=== PATIENT | male | born 1965 | race Caucasian/White ===

== ENCOUNTER 2016-06-12 19:10 | Emergency (ER) | payer SELFPAY ==
[~2016-06-12] VITALS: Ht 182.9 cm; Wt 106.7 kg
[~2016-06-12 19:10] MED LIST: ALBU8I INH; PRED20 PO; ZITH250T PO
[2016-06-12 19:57] VITALS: BP 118/84; PULSE 87; RESP 18; TEMP 98; O2SAT 94
--- NOTE | 2016-06-12 20:11 | PD ---
HPI Chief Complaint: Oral / Dental Pain or Problem Time Seen by Provider: 20:12 Travel History International Travel<30 days: No Contact w/Intl Traveler<30days: No Traveled to known affect area: No History of Present Illness HPI 50-year-old male presents to the ED for evaluation of 3 day history of loose right lower tooth. He states that he has been waking up last few days with a "sick taste" in his mouth. Patient states that he's had trouble with the tooth off and on for a year but this worsened over the last few days. He denies fever or chills, swelling of the jaw, difficulties opening or closing his mouth , ear pain, sinus congestion, sore throat, cough. Patient is current smoker. No treatment attempted at home. Denies chronic illnesses, takes no daily medications. NKDA. PFSH Past Medical History Heart Rhythm Problems: Yes (bradycardia) Cardiovascular Problems: Yes Cerebrovascular Accident: Yes Diminished Hearing: No Immunizations Current: Yes Social History Alcohol Use: Yes (6-8 BEERS PER WEEK) Tobacco Use: Yes (1 pk daily) Substance Use: Yes (DENIES AT PRESENT) Allergies-Medications (Allergen,Severity, Reaction): Coded Allergies: No Known Allergies (Verified , 06/12/16) Reported Meds & Prescriptions Reported Meds & Active Scripts Active Magic Mouthwash Adult Liq (Multi-Ingredient Mouthwash/Gargle) 120 Ml Susp 5 Ml SWISH-SWAL ACHS PRN Each 5mL contains: Nystatin 200,000units, Diphenhydramine 4.25mg, Viscous Lidocaine 10mg, Lincoln syrup 0.8 mL Review of Systems Except as stated in HPI: all other systems reviewed are Neg Physical Exam Narrative GENERAL: Well-nourished, well-developed white male in no acute distress. SKIN: Warm and dry. HEAD: Normocephalic. Atraumatic. EYES: No scleral icterus. No injection or drainage. PERRLA. EOMI. ENT: Pearly zhou tympanic membranes bilaterally. Nasal mucosa is moist. Oropharynx without erythema, edema or exudate. DENTAL: No malocclusion. Tooth #28 has a large dental caries and is very loose. No erythema or edema of the surrounding gingiva. No evidence of dental abscess. Teeth 29 through 32 are missing. Tooth 20-17 are missing. NECK: Supple, trachea midline. No JVD or lymphadenopathy. CARDIOVASCULAR: Regular rate and rhythm without murmurs, gallops, or rubs. No carotid bruits. 2+ DP and radial pulses bilaterally. RESPIRATORY: Breath sounds clear and equal bilaterally. No accessory muscle use. GASTROINTESTINAL: Abdomen soft, non-tender, nondistended. + Bowel sounds MUSCULOSKELETAL: No cyanosis, or edema. Full, active range of motion. Strength 5/5. Neurovascularly intact. BACK: Nontender without obvious deformity. No CVA tenderness. Data Data Last Documented VS Vital Signs Date Time Temp Pulse Resp B/P Pulse Ox O2 Delivery O2 Flow Rate FiO2 06/12/16 19:57 98.0 87 18 118/84 94 MDM Medical Decision Making Medical Screen Exam Complete: Yes Emergency Medical Condition: Yes Differential Diagnosis Dental caries versus dental abscess versus periodontal disease versus other Narrative Course 50-year-old male presents to the ED for evaluation of 3 day history of loose right lower tooth. He states that he has been waking up last few days with a "sick taste" in his mouth. Patient states that he's had trouble with the tooth off and on for a year but this worsened over the last few days. He denies fever or chills, swelling of the jaw, difficulties opening or closing his mouth , ear pain, sinus congestion, sore throat, cough. Patient is a current smoker. Vitals reviewed. Physical exam reveals a well-appearing white male in no acute distress. Very poor dentition overall with very few remaining teeth. Tooth #28 has a large dental caries and is very loose. No evidence of dental abscess in the surrounding gingiva. I suspect this is likely due to periodontal disease. The patient was prescribed Magic mouthwash when necessary pain, instructed to take ibuprofen as needed for pain, follow-up with the dentist. He indicated understanding of the instructions and is amenable to plan of care. This patient is stable and discharged home. Diagnosis Primary Impression: Dental caries into pulp Additional Impression: Periodontal disease Referrals: Dentist Patient Instructions: Dental Caries (ED), General Instructions Additional Instructions: Magic mouthwash 4-5 times a day swish 30 seconds to 1 minute as needed for dental pain. Ibuprofen as directed on label, as needed for pain. Follow-up with the dentist for extraction. Return to the ED for any urgent or emergent medical condition. Med/Other Pt SpecificInfo: Prescription(s) given Scripts Diudbsps-Kkgzdkwerqerxwi-Ozjctorke Liq (Magic Mouthwash Adult Liq)120 Ml Susp5 Ml SWISH-SWAL ACHS PRN (Mouth sores) #120 ML Ref 0 Each 5mL contains: Nystatin 200,000units, Diphenhydramine 4.25mg, Viscous Lidocaine 10mg, Lincoln syrup 0.8 mL Prov:Jennifer Amaral MD 06/12/16 Disposition: 01 DISCHARGE HOME Condition: Stable Odalys Gonzáles Jun 12, 2016 20:11
[2016-06-12] MEDS ORDERED: MAGICADU2 SWISH-SWAL (20:20)
== END 2016-06-12 20:29 | disposition home or self-care (01) ==
LOC: PHEFT 19:10
DX: K02.9 Dental caries, unspecified (principal); F17.210 Nicotine dependence, cigarettes, uncomplicated
CPT/HCPCS: 99282

== ENCOUNTER 2016-08-28 05:07 | Emergency (ER) | payer SELFPAY ==
[~2016-08-28] VITALS: Ht 182.9 cm; Wt 106.5 kg
[~2016-08-28 05:07] MED LIST changes: -ALBU8I INH; +MAGICADU2 SWISH-SWAL; -PRED20 PO; -ZITH250T PO
[2016-08-28 05:14] VITALS: BP 151/98; PULSE 77; RESP 18; TEMP 97.9; O2SAT 97
[2016-08-28 05:30] LABS: AUTOMATED NEUTROPHIL # 7.4 TH/MM3 (1.8-7.7); BASOPHIL # 0.1 TH/MM3 (0-0.2); BASOPHIL % 1.1 % (0.0-2.0); EOSINOPHIL # 0.1 TH/MM3 (0-0.4); EOSINOPHIL % 0.7 % (0.0-4.0); HEMATOCRIT 44.8 % (39.0-51.0); HEMO FLAGS DIFF FINAL; LYMPH % 19.3 % (9.0-44.0); MEAN CELL VOLUME 88.1 FL (80.0-100.0); MEAN CORPUSCULAR HEMOGLOBIN 30.1 PG (27.0-34.0); MEAN CORPUSCULAR HGB CONC 34.2 % (32.0-36.0); MONO % 7.2 % (0.0-8.0); NEUT % 71.7 % (16.0-70.0); PLATELET COUNT 275 TH/MM3 (150-450); RED BLOOD COUNT 5.09 MIL/MM3 (4.50-5.90); WHITE BLOOD COUNT 10.3 TH/MM3 (4.0-11.0)
[2016-08-28 05:43] LABS: CHLORIDE 107 MEQ/L (98-107); POTASSIUM 3.5 MEQ/L (3.5-5.1); SODIUM (NA) 143 MEQ/L (136-145)
[2016-08-28 05:48] LABS: ANION GAP 8 MEQ/L (5-15); BICARBONATE 27.8 MEQ/L (21.0-32.0); BLOOD UREA NITROGEN 11 MG/DL (7-18)
[2016-08-28 05:51] LABS: ALT (GPT) 24 U/L (12-78); AST (GOT) 14 U/L (15-37); GLOMERULAR FILTRATION RATE 70 ML/MIN (>89)
[2016-08-28 05:52] LABS: TOTAL BILIRUBIN ADULT 0.6 MG/DL (0.2-1.0)
[2016-08-28 05:53] LABS: CREATINE KINASE 234 U/L (39-308)
[2016-08-28 05:54] LABS: ALKALINE PHOSPHATASE 98 U/L (45-117)
--- NOTE | 2016-08-28 05:58 | PD ---
HPI Chief Complaint: Pain: Acute or Chronic Time Seen by Provider: 05:10 Travel History International Travel<30 days: No Contact w/Intl Traveler<30days: No Traveled to known affect area: No History of Present Illness HPI The patient is a 50-year-old male who was doing crack cocaine and developed some chest pain and generalized myalgias. The patient got afraid that something may be going on with his heart and called the ambulance. He denies any dark urines. He denies any fever. He denies any cough. PFSH Past Medical History Heart Rhythm Problems: Yes (bradycardia) Cardiovascular Problems: Yes Cerebrovascular Accident: Yes Diminished Hearing: No Immunizations Current: Yes Tetanus Vaccination: > 5 Years Influenza Vaccination: No Social History Alcohol Use: Yes (6-8 BEERS PER WEEK) Tobacco Use: Yes (1 pk daily) Substance Use: Yes (DENIES AT PRESENT) Allergies-Medications (Allergen,Severity, Reaction): Coded Allergies: No Known Allergies (Verified , 08/28/16) Reported Meds & Prescriptions Reported Meds & Active Scripts Active No Active Prescriptions or Reported Medications Review of Systems Except as stated in HPI: all other systems reviewed are Neg Physical Exam Narrative GENERAL: The patient is alert, oriented 3 and slight apparent distress with his chest pain/myalgias. The blood pressure is 151/98 but the rest the vital signs are normal. SKIN: Focused skin assessment warm/dry. No needle tracks nor wrist slash rangel are present. HEAD: Atraumatic. Normocephalic. EYES: Pupils equal and round. No scleral icterus. No injection or drainage. ENT: No nasal bleeding or discharge. Mucous membranes pink and moist. NECK: Trachea midline. No JVD. CARDIOVASCULAR: Regular rate and rhythm. No murmur appreciated. RESPIRATORY: No accessory muscle use. Clear to auscultation. Breath sounds equal bilaterally. GASTROINTESTINAL: Abdomen soft, non-tender, nondistended. Hepatic and splenic margins not palpable. No guarding or rebound is present. MUSCULOSKELETAL: No obvious deformities. No clubbing. No cyanosis. No edema. NEUROLOGICAL: Awake and alert. No obvious cranial nerve deficits. Motor grossly within normal limits. Normal speech. PSYCHIATRIC: The patient is anxious; insight and judgment normal. Data Data Last Documented VS Vital Signs Date Time Temp Pulse Resp B/P Pulse Ox O2 Delivery O2 Flow Rate FiO2 6/2/17 05:18 77 18 08/28/16 05:14 97.9 151/98 97 Orders Electrocardiogram (08/28/16 05:10) Complete Blood Count With Diff (08/28/16 05:10) Comprehensive Metabolic Panel (08/28/16 05:10) Creatine Kinase (Cpk) (08/28/16 05:10) Troponin I (08/28/16 05:10) Urinalysis - C+S If Indicated (08/28/16 05:10) Drug Screen, Random Urine (08/28/16 05:10) Alcohol (Ethanol) (08/28/16 05:10) Salicylates (Aspirin) (08/28/16 05:10) Tylenol (Acetaminophen) (08/28/16 05:10) Labs Laboratory Tests Test 08/28/16 08/28/16 05:15 06:00 White Blood Count 10.3 TH/MM3 Red Blood Count 5.09 MIL/MM3 Hemoglobin 15.3 GM/DL Hematocrit 44.8 % Mean Corpuscular Volume 88.1 FL Mean Corpuscular Hemoglobin 30.1 PG Mean Corpuscular Hemoglobin 34.2 % Concent Red Cell Distribution Width 12.0 % Platelet Count 275 TH/MM3 Mean Platelet Volume 7.7 FL Neutrophils (%) (Auto) 71.7 % Lymphocytes (%) (Auto) 19.3 % Monocytes (%) (Auto) 7.2 % Eosinophils (%) (Auto) 0.7 % Basophils (%) (Auto) 1.1 % Neutrophils # (Auto) 7.4 TH/MM3 Lymphocytes # (Auto) 2.0 TH/MM3 Monocytes # (Auto) 0.7 TH/MM3 Eosinophils # (Auto) 0.1 TH/MM3 Basophils # (Auto) 0.1 TH/MM3 CBC Comment DIFF FINAL Differential Comment Sodium Level 143 MEQ/L Potassium Level 3.5 MEQ/L Chloride Level 107 MEQ/L Carbon Dioxide Level 27.8 MEQ/L Anion Gap 8 MEQ/L Blood Urea Nitrogen 11 MG/DL Creatinine 1.10 MG/DL Estimat Glomerular Filtration 70 ML/MIN Rate Random Glucose 121 MG/DL Calcium Level 8.8 MG/DL Total Bilirubin 0.6 MG/DL Aspartate Amino Transf 14 U/L (AST/SGOT) Alanine Aminotransferase 24 U/L (ALT/SGPT) Alkaline Phosphatase 98 U/L Total Creatine Kinase 234 U/L Troponin I LESS THAN 0.02 NG/ML Total Protein 6.9 GM/DL Albumin 3.7 GM/DL Ethyl Alcohol Level LESS THAN 3 MG/DL Urine Color YELLOW Urine Turbidity CLEAR Urine pH 6.0 Urine Specific [place] 1.025 Urine Protein TRACE mg/dL Urine Glucose (UA) NEG mg/dL Urine Ketones NEG mg/dL Urine Occult Blood NEG Urine Nitrite NEG Urine Bilirubin NEG Urine Leukocyte Esterase NEG Urine RBC 0-2 /hpf Urine WBC 0-2 /hpf Urine Squamous Epithelial 0-5 /hpf Cells Urine Bacteria NONE /hpf Microscopic Urinalysis Comment CULT NOT INDICATED MDM Medical Decision Making Medical Screen Exam Complete: Yes Emergency Medical Condition: Yes Medical Record Reviewed: Yes Interpretation(s) The EKG shows sinus rhythm with a rate of [address] elevation or depression. The CBC is essentially normal. The urine shows trace protein, specific gravity 1.0-5, negative for blood and leukocyte esterase and culture is not indicated. The complete metabolic profile shows a GFR of 70, glucose 121 but is otherwise normal. The total CK is normal and the troponin I is normal, less than 0.02. Differential Diagnosis Cocaine induced chest pain, acute coronary syndrome, chest wall pain, rhabdomyolysis, electrolyte disorder Narrative Course The patient appears to have cocaine-induced chest pain. There is no evidence of acute coronary syndrome or rhabdomyolysis. Plan: The patient should discontinue cocaine. He should follow-up with a primary care physician. Diagnosis Primary Impression: Chest pain of uncertain etiology Additional Impression: Cocaine abuse Additional Instructions: As we discussed, discontinue cocaine and follow-up with your primary care physician next week. There is no evidence of any heart damage on our laboratory work or EKG. Scripts No Active Prescriptions or Reported Meds Disposition: 01 DISCHARGE HOME Condition: Stable Bon Matthews MD Aug 28, 2016 05:58
[2016-08-28 06:17] LABS: BLOOD, URINE NEG (NEG); GLUCOSE,URINE NEG (NEG); KETONE, URINE NEG (NEG); NITRITE,URINE NEG (NEG)
[2016-08-28 06:18] LABS: URINE COLOR YELLOW (YELLW/STRAW)
[2016-08-28 06:26] LABS: WBC, URINE 0-2 /hpf (0-5)
[2016-08-28 06:27] LABS: COMMENT (UR) CULT NOT INDICATED; CULTURE IF INDICATED CULT NOT INDICATED; RBC, URINE 0-2 /hpf (0-3); SQUAMOUS EPITHELIAL CELL URINE 0-5 /hpf (0-5)
[2016-08-28 06:33] VITALS: BP 137/80; PULSE 74; RESP 18; O2SAT 99
[2016-08-28 06:36] LABS: AMPHETAMINE, URINE NEG (NEG)
[2016-08-28 06:37] LABS: BARBITURATES, URINE NEG (NEG)
[2016-08-28 06:42] LABS: COCAINE, URINE POS (NEG)
[2016-08-28 07:10] LABS: ACETAMINOPHEN LESS THAN 2.0 MCG/ML (10.0-30.0)
--- NOTE | 2016-08-28 14:28 | EKG ---
Date Performed: 08/28/2016 Time Performed: 05:20:32 PTAGE: 50 years EKG: Sinus rhythm . Leftward axis Nonspecific T wave changes Borderline ECG NO PREVIOUS TRACING DOCTOR: Bishop Looney Interpretating Date/Time 08/28/2016 14:27:00
== END 2016-08-28 06:59 | disposition home or self-care (01) ==
LOC: PHED 05:07
DX: R07.9 Chest pain, unspecified (principal); F14.10 Cocaine abuse, uncomplicated; R94.31 Abnormal electrocardiogram [ECG] [EKG]; M79.1 Myalgia; F17.200 Nicotine dependence, unspecified, uncomplicated; Z86.79 Personal history of other diseases of the circulatory system
CPT/HCPCS: 80053; 80307; 81001; 82550; 84484; 85025; 93005; 99284

== ENCOUNTER 2017-04-28 11:27 | Emergency (ER) | payer SELFPAY ==
[~2017-04-28] VITALS: Ht 182.9 cm; Wt 102.5 kg
[2017-04-28 11:42] VITALS: BP 132/85; PULSE 92; RESP 16; TEMP 98.8; O2SAT 96
[2017-04-28] MEDS ORDERED: CEPH-460 PO (11:58)
[2017-04-28] MEDS ORDERED: BACT800T5 PO (11:58)
--- NOTE | 2017-04-28 12:02 | PD ---
HPI Chief Complaint: Skin Problem Time Seen by Provider: 11:57 Travel History International Travel<30 days: No Contact w/Intl Traveler<30days: No Traveled to known affect area: No History of Present Illness HPI 51-year-old male presents for evaluation of an area of skin redness, pain to the left lower leg. He first noticed a small pimple type lesion just inferior to his anterior left knee. since then he has had progressive increasing redness around the area with associated pain. Pain is aching and worse with palpation of the skin. Denies any fevers, chills, drainage. Denies any skin trauma. He has no other complaints at this time. PFSH Past Medical History Heart Rhythm Problems: Yes (bradycardia) Cardiovascular Problems: Yes Cerebrovascular Accident: Yes Diminished Hearing: No Immunizations Current: Yes Social History Alcohol Use: Yes (6-8 BEERS PER WEEK) Tobacco Use: Yes (1 pk daily) Substance Use: Yes (DENIES AT PRESENT) Allergies-Medications (Allergen,Severity, Reaction): Coded Allergies: No Known Allergies (Verified Adverse Reaction, Unknown, 04/28/17) Reported Meds & Prescriptions Reported Meds & Active Scripts Active Keflex (Cephalexin) 500 Mg Cap 500 Mg PO Q8H Bactrim DS (Sulfamethoxazole-Trimethoprim) 800-160 Mg Tab 1 Tab PO BID Review of Systems General / Constitutional: No: Fever, Chills Skin: Positive Other (positive for redness, pain) Physical Exam Narrative GENERAL: Well-nourished male in no acute distress SKIN: Warm and dry. Small excoriated papular lesion anterior proximal left arce. There is some surrounding erythema. No induration or fluctuance. HEAD: Atraumatic. Normocephalic. EYES: Pupils equal and round. No scleral icterus. No injection or drainage. ENT: No nasal bleeding or discharge. Mucous membranes pink and moist. NECK: Trachea midline. No JVD. CARDIOVASCULAR: Regular rate and rhythm. No murmur appreciated. RESPIRATORY: No accessory muscle use. Clear to auscultation. Breath sounds equal bilaterally. GASTROINTESTINAL: Abdomen soft, non-tender, nondistended. Hepatic and splenic margins not palpable. MUSCULOSKELETAL: No obvious deformities. No clubbing. No cyanosis. No edema. NEUROLOGICAL: Awake and alert. No obvious cranial nerve deficits. Motor grossly within normal limits. Normal speech. PSYCHIATRIC: Appropriate mood and affect; insight and judgment normal. Data Data Last Documented VS Vital Signs Date Time Temp Pulse Resp B/P (MAP) Pulse Ox O2 Delivery O2 Flow Rate FiO2 04/28/17 11:42 98.8 92 16 132/85 (101) 96 Orders Orders Ed Discharge Order (04/28/17 12:00) MDM Medical Decision Making Medical Screen Exam Complete: Yes Emergency Medical Condition: Yes Medical Record Reviewed: Yes Differential Diagnosis Cellulitis, abscess, erysipelas Narrative Course Examination reveals cellulitis. The patient will be treated as an outpatient with Bactrim and Keflex. Discussed signs and symptoms that would warrant returning to the emergency room. Diagnosis Primary Impression: Cellulitis of left leg Additional Instructions: Stay well-hydrated and well-nourished, get plenty of rest. Medication as prescribed. Follow-up with primary care physician. Return for any new or worsening symptoms. Med/Other Pt SpecificInfo: Prescription(s) given Scripts Cephalexin (Keflex) 500 Mg Cap 500 MG PO Q8H for Infection, #30 CAP 0 Refills Prov: Sera Noland MD 04/28/17 Sulfamethoxazole-Trimethoprim (Bactrim DS) 800-160 Mg Tab 1 TAB PO BID for Infection, #20 TAB 0 Refills Prov: Sera Noland MD 04/28/17 Disposition: 01 DISCHARGE HOME Condition: Stable Kosta Cevallos Apr 28, 2017 12:02
== END 2017-04-28 13:11 | disposition home or self-care (01) ==
LOC: PHEFT 11:27
DX: L03.116 Cellulitis of left lower limb (principal); F17.200 Nicotine dependence, unspecified, uncomplicated
CPT/HCPCS: 99284